=== PATIENT | male | born 1965 | race Two or more races ===

== ENCOUNTER 2019-01-23 06:53 | Outpatient (CLI) | payer BC, OTHER | END 2019-01-23 23:59 | disposition home or self-care (01) | LOC: CFH 06:53 | PROVIDERS: ATTEND Physician Assistant Surgical | DX: S46.212A Strain of muscle, fascia and tendon of other parts of biceps, left arm, initial encounter (principal); M77.12 Lateral epicondylitis, left elbow; X58.XXXA Exposure to other specified factors, initial encounter; Y93.89 Activity, other specified; Y92.89 Other specified places as the place of occurrence of the external cause; Y99.8 Other external cause status ==